=== PATIENT | male | born 1965 | race Caucasian/White ===

== ENCOUNTER 2018-07-15 20:47 | Emergency (ER) | payer SELFPAY ==
[~2018-07-15] VITALS: Ht 165.1 cm; Wt 84.4 kg
[2018-07-15 21:12] VITALS: Ht 165.1 cm; Wt 84.4 kg
[2018-07-15 23:44] VITALS: BP 135/73
== END 2018-07-15 23:44 | disposition home or self-care (01) ==
LOC: ED 20:47
DX: S13.4XXA Sprain of ligaments of cervical spine, initial encounter (principal); S33.5XXA Sprain of ligaments of lumbar spine, initial encounter; S20.212A Contusion of left front wall of thorax, initial encounter; S60.512A Abrasion of left hand, initial encounter; R10.9 Unspecified abdominal pain; V43.52XA Car driver injured in collision with other type car in traffic accident, initial encounter; W22.10XA Striking against or struck by unspecified automobile airbag, initial encounter; Y93.89 Activity, other specified; Y92.488 Other paved roadways as the place of occurrence of the external cause; Y99.8 Other external cause status